=== PATIENT | male | born 1945 | race Caucasian/White ===

== ENCOUNTER 2022-04-27 12:21 | Outpatient (CLI) | payer MEDICARE, OTHER ==
[2022-04-27] MEDS ORDERED: Magnevist 469MG/ML 20 ML VIAL ONE (13:19)
== END 2022-04-27 12:22 | disposition home or self-care (01) ==
LOC: TBSIIMAG 12:21
PROVIDERS: ATTEND Urology
DX: C61 Malignant neoplasm of prostate (principal)
CPT/HCPCS: 72197; 82565; A9579

== ENCOUNTER 2022-12-30 10:39 | Outpatient (CLI) | payer MEDICARE, OTHER | END 2022-12-30 10:40 | disposition home or self-care (01) | LOC: RAD 10:39 | PROVIDERS: ATTEND Internal Medicine Critical Care Medicine | DX: R06.00 Dyspnea, unspecified (principal) | CPT/HCPCS: 71046 ==